=== PATIENT | female | born 1940 | race Caucasian/White ===

== ENCOUNTER → 2017-04-16 | Outpatient (CLI) | payer MEDICARE, BC ==
[~2017-04-16] MED LIST: HCTZ 25MG25 MG PO; LIPITOR 10MG10 MG PO; NORCO 325 MG-51 TAB PO; PAXIL 20MG20 MG PO; PRILOSEC 10MG10 MG PO; PRILOSEC 20MG20 MG PO; TYLENOL 8 HR PO
== END ==
LOC: MC.RAD 11:11
DX: Z12.31 Encounter for screening mammogram for malignant neoplasm of breast (principal); N63 Unspecified lump in breast

== ENCOUNTER → 2017-04-18 | Outpatient (CLI) | payer MEDICARE, BC | LOC: MC.RAD 07:27 | DX: N63 Unspecified lump in breast (principal) ==

== ENCOUNTER → 2017-04-24 | Outpatient (CLI) | payer MEDICARE, BC | LOC: MC.RAD 08:26 | DX: N63 Unspecified lump in breast (principal) ==

== ENCOUNTER 2017-05-03 08:32 | Outpatient (CLI) | payer MEDICARE, BC ==
[~2017-05-03 08:32] MED LIST changes: -NORCO 325 MG-51 TAB PO; -TYLENOL 8 HR PO
[2017-05-03 09:04] VITALS: BP 113/72; PULSE 63; TEMP 97.4
== END 2017-05-03 09:44 | disposition home or self-care (01) ==
LOC: EUO 08:32
DX: Z13.820 Encounter for screening for osteoporosis (principal); M81.0 Age-related osteoporosis without current pathological fracture; M50.30 Other cervical disc degeneration, unspecified cervical region; F32.9 Major depressive disorder, single episode, unspecified; I10 Essential (primary) hypertension; N39.3 Stress incontinence (female) (male); K21.9 Gastro-esophageal reflux disease without esophagitis; E78.00 Pure hypercholesterolemia, unspecified; N20.0 Calculus of kidney; M17.9 Osteoarthritis of knee, unspecified; M85.80 Other specified disorders of bone density and structure, unspecified site; E21.0 Primary hyperparathyroidism; E55.9 Vitamin D deficiency, unspecified; Z90.49 Acquired absence of other specified parts of digestive tract; Z78.0 Asymptomatic menopausal state; Z86.010 Personal history of colon polyps; Z80.3 Family history of malignant neoplasm of breast; Z80.8 Family history of malignant neoplasm of other organs or systems; Z98.890 Other specified postprocedural states
CPT/HCPCS: J3489

== ENCOUNTER 2017-05-15 06:55 | Day surgery (SDC) | payer MEDICARE, BC ==
[~2017-05-15] VITALS: Ht 170.2 cm; Wt 79.7 kg
[2017-05-15] VITALS (7 sets, daily range): BP systolic 124–145; BP diastolic 62–74; PULSE 61–75; TEMP 98.2
[2017-05-15] MEDS ORDERED: PAXIL 20MG20 MG PO (08:35)
[2017-05-15] MEDS ORDERED: TYLENOL 8 HR PO (08:37)
[2017-05-15] MEDS ORDERED: NORCO 325 MG-51 TAB PO (15:01)
== END 2017-05-15 16:00 | disposition home or self-care (01) ==
LOC: SDCO 06:55
DX: C50.412 Malignant neoplasm of upper-outer quadrant of left female breast (principal); E07.9 Disorder of thyroid, unspecified; K21.9 Gastro-esophageal reflux disease without esophagitis; Z80.3 Family history of malignant neoplasm of breast; Z80.49 Family history of malignant neoplasm of other genital organs; Z80.0 Family history of malignant neoplasm of digestive organs; Z87.891 Personal history of nicotine dependence
CPT/HCPCS: A9541; J0690; J1100; J2250; J2704; J2795; J3010; J7120

== ENCOUNTER → 2017-06-01 | Outpatient (CLI) | payer MEDICARE, BC ==
[~2017-06-01] MED LIST changes: +NORCO 325 MG-51 TAB PO; +TYLENOL 8 HR PO
== END ==
LOC: COL.VAS 14:01
DX: I08.1 Rheumatic disorders of both mitral and tricuspid valves (principal); Z09 Encounter for follow-up examination after completed treatment for conditions other than malignant neoplasm

== ENCOUNTER → 2017-09-11 | Outpatient (CLI) | payer MEDICARE, BC | LOC: COL.RAD 14:23 | DX: K80.20 Calculus of gallbladder without cholecystitis without obstruction (principal); K44.9 Diaphragmatic hernia without obstruction or gangrene; K57.30 Diverticulosis of large intestine without perforation or abscess without bleeding; Z85.3 Personal history of malignant neoplasm of breast | CPT/HCPCS: J7050; Q9967 ==

== ENCOUNTER 2017-09-17 10:11 | Day surgery (SDC) | payer MEDICARE, BC ==
[~2017-09-17] VITALS: Ht 170.2 cm; Wt 76.2 kg
[2017-09-17] VITALS (10 sets, daily range): BP systolic 108–149; BP diastolic 54–73; PULSE 82–105; TEMP 97.6–99.7
[2017-09-18] VITALS (9 sets, daily range): BP systolic 98–116; BP diastolic 48–55; PULSE 57–110; TEMP 98.3–101.7
== END 2017-09-18 19:40 | disposition home or self-care (01) ==
LOC: SDCO 10:11 → SURG 15:17 → SDCO 09-18 19:40
DX: K80.66 Calculus of gallbladder and bile duct with acute and chronic cholecystitis without obstruction (principal); K21.9 Gastro-esophageal reflux disease without esophagitis; F32.9 Major depressive disorder, single episode, unspecified; Z85.3 Personal history of malignant neoplasm of breast
CPT/HCPCS: OP; C1769; J0696; J1170; J2405; J2704; J3010; J7030; J7120; Q9967

== ENCOUNTER → 2018-05-17 | Outpatient (CLI) | payer MEDICARE, BC | LOC: COL.RAD 11:14 | DX: M89.8X8 Other specified disorders of bone, other site (principal); R50.9 Fever, unspecified; Z90.49 Acquired absence of other specified parts of digestive tract; Z85.3 Personal history of malignant neoplasm of breast | CPT/HCPCS: Q9967 ==

== ENCOUNTER 2018-05-21 12:55 | Outpatient (CLI) | payer MEDICARE, BC ==
[~2018-05-21] VITALS: Ht 170.2 cm; Wt 75.8 kg
[2018-05-21 13:23] VITALS: BP 113/58; PULSE 88; TEMP 97.9
== END 2018-05-21 14:09 | disposition home or self-care (01) ==
LOC: EUO 12:55
DX: M81.0 Age-related osteoporosis without current pathological fracture (principal)
CPT/HCPCS: J3489

== ENCOUNTER → 2018-06-05 | Outpatient (CLI) | payer MEDICARE, BC | LOC: MC.RAD 13:32 | DX: Z12.31 Encounter for screening mammogram for malignant neoplasm of breast (principal); Z98.890 Other specified postprocedural states; Z90.12 Acquired absence of left breast and nipple ==

== ENCOUNTER 2018-11-29 08:57 | Inpatient (IN) | payer MEDICARE, BC ==
[~2018-11-29] VITALS: Ht 170.2 cm; Wt 79.3 kg
[2018-11-29 09:32] LABS: BASO % 0.3 % (0.0-2.0); EOS # 0.1 (0.0-0.7); EOS % 0.8 % (0-4.0); GRAN # 6.8 (1.4-6.5); GRAN % 74.5 % (42.2-75.2); HEMATOCRIT 51.6 % (37.0-47.0); HEMOGLOBIN 16.8 g/dl (12.5-16.0); LYMPH # 1.5 (1.2-3.4); LYMPH % 16.1 % (20.0-51.0); MEAN CELL VOLUME 92 fl (80.0-100.0); MEAN CORPUSCULAR HEMOGLOBIN 30 pg (27.0-31.0); MEAN CORPUSCULAR HGB CONC 33 g/dl (33.0-37.0); MEAN PLATELET VOLUME 8.7 fl (7.4-10.4); MONO # 0.7 (0.1-0.6); MONO % 7.8 % (1.7-9.3); PLATELET COUNT 376 K/mm3 (130-400); RED BLOOD COUNT 5.64 M/mm3 (4.10-5.30); REDCELL DISTRIBUTION WIDTH-CV 13.9 % (11.5-14.5)
[2018-11-29 09:44] LABS: BILIRUBIN,TOTAL 1.8 mg/dL (0.0-1.0); CREATININE, serum 3.5 mg/dL (0.52-1.25); POTASSIUM 3.9 mmol/L (3.4-5.0); TOTAL PROTEIN 8.9 gm/dL (6.4-8.2)
[2018-11-29 10:47] LABS: COLLECTION METHOD CATHETER
[2018-11-29 11:03] LABS: AMORPHOUS CRYSTAL Present /uL; HYALINE CAST >12 /lpf; MUCOUS Present /lpf; PH 5 (5-8); URINE APPEARANCE Cloudy; URINE BACTERIA Rare /hpf; URINE BILIRUBIN Positive (NEGATIVE); URINE BLOOD 3+ (NEGATIVE); URINE COLOR Amber; URINE GLUCOSE Negative (NEGATIVE); URINE KETONE Negative (NEGATIVE); URINE LEUKOCYTE ESTERASE 2+ (NEGATIVE); URINE NITRATE Negative (NEGATIVE); URINE PROTEIN(semi-quant) 2+ (NEGATIVE); URINE RBC 20-50 /hpf
--- NOTE | 2018-11-29 13:00 | NUR ---
Pt arrived to floor at this time from ER via w/c with ER staff. Will orient and continue to monitor.
[2018-11-29 13:33] VITALS: BP 117/58; PULSE 16; TEMP 97.9
[2018-11-29 15:47] VITALS: BP 108/56; PULSE 100; TEMP 98.2
--- NOTE | 2018-11-29 18:21 | NUR ---
Pt has had several loose stools today, diarrhea is liquid and green. Denies nausea and vomiting. IVF to L A/C. Assisting to bathroom. Denies pain. Taking minimal PO, no appetite. English draining clear yellow urine. Will give bedside shift report to nightshift nurse who will resume care.
[2018-11-29 18:47] VITALS: BP 113/56; PULSE 113; TEMP 98.1
--- NOTE | 2018-11-29 22:36 | NUR ---
Completed assessment and medication administration for PT; PT reported continued intermittent diarrhea, although no further N/V; English inplace for accurate I&O tracking; A&Ox3, BS hyperactive with toileting assistance for safety, NS running at 125 to LAC; PT denies pain, discomfort, or further needs at time of assessment and at exit; call light placed within reach; Will continue to monitor. CDA
[2018-11-30] VITALS (7 sets, daily range): BP systolic 101–118; BP diastolic 54–63; PULSE 83–109; TEMP 97–98.7
--- NOTE | 2018-11-30 01:54 | NUR ---
PT tolerating fluids, medications, and toileting well throughout night; PT requested a midnight snack with minimal success; PT denied N/V and continues to have intermittent diarrhea; PT denies pain or discomfort at time of exit; call light placed within reach; English empied and recorded; Will continue to monitor. CDA
--- NOTE | 2018-11-30 06:57 | NUR ---
Report given to YANG Leonardo. No significant changes. CDA
[2018-11-30 07:53] LABS: BASO % 0.4 % (0.0-2.0); EOS # 0.1 (0.0-0.7); EOS % 1.5 % (0-4.0); GRAN # 3.8 (1.4-6.5); GRAN % 68.9 % (42.2-75.2); HEMATOCRIT 39.3 % (37.0-47.0); LYMPH # 0.9 (1.2-3.4); LYMPH % 16.2 % (20.0-51.0); MEAN CELL VOLUME 93 fl (80.0-100.0); MEAN CORPUSCULAR HEMOGLOBIN 30 pg (27.0-31.0); MEAN CORPUSCULAR HGB CONC 32 g/dl (33.0-37.0); MEAN PLATELET VOLUME 8.7 fl (7.4-10.4); MONO # 0.7 (0.1-0.6); MONO % 12.6 % (1.7-9.3); PLATELET COUNT 278 K/mm3 (130-400); RED BLOOD COUNT 4.23 M/mm3 (4.10-5.30)
[2018-11-30 08:03] LABS: HEMOGLOBIN 12.5 g/dl (12.5-16.0)
[2018-11-30 08:04] LABS: ALBUMIN 3.3 gm/dL (3.5-5.0); BILIRUBIN,TOTAL 0.7 mg/dL (0.0-1.0); CALCIUM 9.4 mg/dL (8.4-10.2); CREATININE, serum 1.03 mg/dL (0.52-1.25); TOTAL PROTEIN 6.2 gm/dL (6.4-8.2)
--- NOTE | 2018-11-30 08:49 | NUR ---
PATIENT ASSESSMENT COMPLETED. SHE DENIES ANY PAIN, NAUSEA, HAS HAD ONE SMALL BOUT OF DIARRHEA THIS MORNING. FEELING ALOT BETTER. DAUGHTER AT BEDSIDE
--- NOTE | 2018-11-30 10:26 | NUR ---
Plan to return home. Patient reports that she lives alone. Patient reports that her daughter will transport her home. Patient indicated that she has a walker but declines home health care. PCP is Ross Snell for RX. POA is Tatum Mendez DTR . Action: SW educated of resources, no additonal needs identified. Will continue to follow.
--- NOTE | 2018-11-30 12:02 | NUR ---
IVF INFUSING AT 100ML/HR PER DOCTOR ORDERS
--- NOTE | 2018-11-30 12:40 | NUR ---
TRINH DISCONTINUED PER DR. RICK. PATIENT IS ASSISTED TO THE RESTROOM SHE WILL PROVIDE HER OWN PERICARE PER HER REQUEST
--- NOTE | 2018-11-30 14:50 | NUR ---
PATIENT RESTING IN BED VISITING WITH FRIEND. SHE DENIES NEEDS AT THIS TIME
--- NOTE | 2018-11-30 17:05 | NUR ---
PATIENT HAS BEEN ABLE TO VOID SINCE TRINH HAS BEEN REMOVED. DENIES COMPLICATIONS.
--- NOTE | 2018-11-30 21:04 | NUR ---
PT IN BED WITH HOB FLAT, AND THAT IS THE WAY THE PT LIKES IT. PT DENIES PAIN OR DISCOMFORT. DAUGHTER WAS VISITING EARLIER BUT HAD LEFT AND NOW PT IS TRYING TO SLEEP. NO NEEDS AT THIS TIME, CALL LIGHT WITHIN REACH.
--- NOTE | 2018-12-01 02:53 | NUR ---
UNEVENTFUL NIGHT FOR PT. PT SLEEP/RESTING WITH NO S/S OF PAIN OR DISTRESS. CALL LIGHT WITHIN REACH.
[2018-12-01 04:08] VITALS: BP 103/48; PULSE 75
[2018-12-01 08:16] VITALS: BP 110/49; PULSE 67; TEMP 98.7
--- NOTE | 2018-12-01 08:43 | NUR ---
PATIENT ASSESSMENT COMPLETED. SHE STATES THAT SHE SLEPT WELL LAST NIGHT. SHE IS EATING BREAKFAST AND IT TASTES OK, NOT OVERLY HUNGRY. DENIES PAIN, VOMITING. REPORTS STOOL IS STARTING TO HAVE SOME FORM TO IT. NO OTHER NEEDS AT THIS TIME
[2018-12-01 08:47] LABS: BASO % 0.2 % (0.0-2.0); EOS # 0.3 (0.0-0.7); EOS % 5.5 % (0-4.0); GRAN # 2.7 (1.4-6.5); GRAN % 58.8 % (42.2-75.2); HEMOGLOBIN 11.2 g/dl (12.5-16.0); LYMPH % 22.6 % (20.0-51.0); MEAN CELL VOLUME 92 fl (80.0-100.0); MEAN CORPUSCULAR HEMOGLOBIN 30 pg (27.0-31.0); MEAN CORPUSCULAR HGB CONC 32 g/dl (33.0-37.0); MEAN PLATELET VOLUME 9.3 fl (7.4-10.4); MONO # 0.6 (0.1-0.6); MONO % 12.7 % (1.7-9.3); PLATELET COUNT 280 K/mm3 (130-400); REDCELL DISTRIBUTION WIDTH-CV 13.9 % (11.5-14.5)
[2018-12-01 08:56] LABS: HEMATOCRIT 34.9 % (37.0-47.0)
[2018-12-01 09:03] LABS: CALCIUM 9.2 mg/dL (8.4-10.2); CREATININE, serum 0.8 mg/dL (0.52-1.25); MAGNESIUM 1.8 mg/dL (1.6-2.3); POTASSIUM 3.8 mmol/L (3.4-5.0)
[2018-12-01 11:50] VITALS: BP 95/52; PULSE 71; TEMP 98
[2018-12-01] MEDS ORDERED: IMODIUM 2MG CAPS2 MG PO (12:16)
[2018-12-01] MEDS ORDERED: CIPRO 500MG TA500 MG PO (12:17)
[2018-12-01] MEDS ORDERED: ZOFRAN 4MG T4 MG/TAB PO (12:17)
--- NOTE | 2018-12-01 14:50 | NUR ---
DAUGHTER HERE TO ETYMOLOGY TEACHER PATIENT THEY DENY QUESTIONS
--- NOTE | 2018-12-01 15:30 | NUR ---
DISCHARGE INSTRUCTIONS REVIEWED WITH PATIENT. NEW SCRIPTS SENT WITH PATIENT.
== END 2018-12-01 14:50 | disposition home or self-care (01) | DRG 683 ==
LOC: COL.ER 08:57 → MEDICAL 10:10 → COL.ER 10:10 → MEDICAL 10:10
PROVIDERS: Emergency Medicine; Physician Assistant; ADMIT Internal Medicine
DX: N17.9 Acute kidney failure, unspecified (principal); N39.0 Urinary tract infection, site not specified; E87.2 Acidosis; Z85.3 Personal history of malignant neoplasm of breast; I10 Essential (primary) hypertension; E78.5 Hyperlipidemia, unspecified; Z87.891 Personal history of nicotine dependence; K52.9 Noninfective gastroenteritis and colitis, unspecified; B96.20 Unspecified Escherichia coli [E. coli] as the cause of diseases classified elsewhere; K21.9 Gastro-esophageal reflux disease without esophagitis; F32.9 Major depressive disorder, single episode, unspecified
CPT/HCPCS: OP; 99222-AI; 99232-AI; 99239; A4216; J0696; J1644; J2405; J7030

== ENCOUNTER → 2019-03-06 | Outpatient (CLI) | payer MEDICARE, BC ==
[~2019-03-06] MED LIST changes: +CIPRO 500MG TA500 MG PO; +IMODIUM 2MG CAPS2 MG PO; +ZOFRAN 4MG T4 MG/TAB PO
== END ==
LOC: COL.RAD 10:00
DX: E05.90 Thyrotoxicosis, unspecified without thyrotoxic crisis or storm (principal)
CPT/HCPCS: A9500

== ENCOUNTER → 2019-06-06 | Outpatient (CLI) | payer MEDICARE, BC | LOC: MC.RAD 09:15 | DX: Z12.31 Encounter for screening mammogram for malignant neoplasm of breast (principal); C50.412 Malignant neoplasm of upper-outer quadrant of left female breast; Z85.3 Personal history of malignant neoplasm of breast; Z98.890 Other specified postprocedural states; Z92.3 Personal history of irradiation ==

== ENCOUNTER 2019-06-24 08:53 | Outpatient (CLI) | payer MEDICARE, BC ==
[2019-06-24 09:14] VITALS: BP 126/67; PULSE 82; TEMP 97.8
== END 2019-06-24 10:00 | disposition home or self-care (01) ==
LOC: EUO 08:53
DX: M81.0 Age-related osteoporosis without current pathological fracture (principal)
CPT/HCPCS: J3489

== ENCOUNTER → 2020-06-07 | Outpatient (CLI) | payer MEDICARE, BC | LOC: MC.RAD 10:23 | DX: Z12.31 Encounter for screening mammogram for malignant neoplasm of breast (principal); C50.412 Malignant neoplasm of upper-outer quadrant of left female breast; Z90.12 Acquired absence of left breast and nipple ==

== ENCOUNTER 2020-09-08 14:15 | Outpatient (CLI) | payer MEDICARE, BC ==
[~2020-09-08] VITALS: Ht 170.2 cm; Wt 80.0 kg
[2020-09-08 14:30] VITALS: BP 131/85; PULSE 93; TEMP 98.1
== END 2020-09-08 16:00 | disposition home or self-care (01) ==
LOC: EUO 14:15
DX: M81.0 Age-related osteoporosis without current pathological fracture (principal)
CPT/HCPCS: J3489

== ENCOUNTER → 2021-07-14 | Outpatient (CLI) | payer MEDICARE, BC | LOC: MC.RAD 06-15 09:30 | DX: Z12.31 Encounter for screening mammogram for malignant neoplasm of breast (principal) ==

== ENCOUNTER → 2022-07-17 | Outpatient (CLI) | payer MEDICARE, BC | LOC: MC.RAD 08:55 | DX: Z12.31 Encounter for screening mammogram for malignant neoplasm of breast (principal); Z85.3 Personal history of malignant neoplasm of breast ==

== ENCOUNTER → 2024-07-18 | Outpatient (CLI) | payer MEDICARE, BC | LOC: MC.RAD 13:23 | DX: Z12.31 Encounter for screening mammogram for malignant neoplasm of breast (principal) ==

== ENCOUNTER 2024-08-18 17:09 | Inpatient (IN) | payer MEDICARE, BC ==
[~2024-08-18] VITALS: Ht 170.2 cm; Wt 77.3 kg
[2024-08-18] MEDS ORDERED: NS 1,000 ML IV ONE (17:30)
[2024-08-18] MEDS ORDERED: Ondansetron 4 MG/2 ML VIAL IV ONE (17:30)
[2024-08-18 18:09] LABS: BILIRUBIN,TOTAL 0.7 mg/dL (0.2-1.2); CREATININE, serum 0.8 mg/dL (0.57-1.11); POTASSIUM 3.8 mEq/L (3.5-4.5); TOTAL PROTEIN 6.8 g/dl (6.2-8.1)
[2024-08-18 18:16] LABS: TROPONIN-I 0.01 ng/mL (0.00-0.033)
[2024-08-18 18:21] LABS: BASO # 0.1 K/mm3 (0.0-0.2); BASO % 0.6 % (0.0-2.0); EOS # 0.3 K/mm3 (0.0-0.7); GRAN # 7.9 K/mm3 (1.4-6.5); GRAN % 74.9 % (42.2-75.2); HEMOGLOBIN 12.3 g/dl (12.5-16.0); LYMPH # 1.2 K/mm3 (1.2-3.4); LYMPH % 11.3 % (20.0-51.0); MEAN CELL VOLUME 90 fl (80.0-100.0); MEAN CORPUSCULAR HEMOGLOBIN 31 pg (27-31); MEAN CORPUSCULAR HGB CONC 34 g/dl (33.0-37.0); MEAN PLATELET VOLUME 8.3 fl (7.4-10.4); MONO % 9.8 % (1.7-9.3); PLATELET COUNT 480 K/mm3 (130-400); RED BLOOD COUNT 3.98 M/mm3 (4.10-5.30); REDCELL DISTRIBUTION WIDTH-CV 13.7 % (11.5-14.5)
[2024-08-18 18:31] LABS: HEMATOCRIT 35.8 % (37.0-47.0)
[2024-08-18 18:35] LABS: ALBUMIN 3.8 g/dL (3.4-4.8)
[2024-08-18] MEDS ORDERED: Meclizine 25 MG TAB PO ONE ×2 (19:15→20:45)
[2024-08-18 20:15] LABS: COLLECTION METHOD CATHETER
[2024-08-18 20:22] LABS: PH 6.5 (5.0-8.5); URINE APPEARANCE CLEAR (CLEAR/HAZY); URINE BLOOD NEGATIVE (NEGATIVE); URINE COLOR YELLOW (YELLOW); URINE GLUCOSE NEGATIVE (NEGATIVE); URINE KETONE TRACE (NEGATIVE); URINE NITRATE POSITIVE (NEGATIVE); URINE PROTEIN(semi-quant) NEGATIVE (NEGATIVE); URINE UROBILINOGEN 0.2 E.U/dL (0.2-1.0)
[2024-08-18] MEDS ORDERED: diphenhydrAMINE 25 MG CAP PO ONE (20:45)
[2024-08-18] MEDS ORDERED: cefTRIAXone 1 G in Water For Injection,Sterile 10 ML IV ONE (20:45)
[2024-08-18] MEDS ORDERED: Ondansetron 4 MG/2 ML VIAL IV PRN (23:15)
[2024-08-18] MEDS ORDERED: LR 1,000 ML IV SCH (23:15)
[2024-08-18] MEDS ORDERED: Scopolamine 1 MG Delivered 3-Day PATCH TD ONE (23:30)
[2024-08-18] MEDS ORDERED: Atorvastatin 10 MG TAB PO SCH (23:58)
[2024-08-19] VITALS (10 sets, daily range): BP systolic 113–174; BP diastolic 61–87; PULSE 68–90; TEMP 97.7–98.6
[2024-08-19] MEDS ORDERED: ASPIRIN 81M81 MG/TA2 PO
[2024-08-19] MEDS ORDERED: MOBIC15 MG PO
--- NOTE | 2024-08-19 00:05 | NUR ---
PATIENT ADMITTED ROOM 329. VS ARE 174/87 BP, PULSE 80, 98% O2 ON RA, HOWEVER, PER ED DESATS WHEN ASLEEP, TEMP 97.7 AND A&O X4. PATIENT ACCOMPANIED BY DAUGHTER. ORIENTED TO ROOM.
[2024-08-19] MEDS ORDERED: SYNTHROID0.075 MG/T PO (00:46)
--- NOTE | 2024-08-19 01:00 | NUR ---
PATIENT REFUSES HOSPITAL GOWN, WISHES TO STAY IN HOME CLOTHES. PATIENT WEARING SLIPPERS WITH RUBBER GRIPPER NOBES. PATIENT REFUSED LIPITOR, STATED DOCTOR DC'D D/T MUSCULAR PAIN. FALL PRECAUTIONS IN PLACE. PATIENT STATES NO NEEDS AT THIS TIME. RT SHOULDER IMMOBILIZER IN PLACE AND SCOPOLAMINE PATCH PLACED BEHIND LT EAR.
--- NOTE | 2024-08-19 01:00 | NUR ---
CALL PLACED TO HOSPITALISTLARRY. PATIENT HYPERTENSIVE 165 SYSTOLIC. TORB FOR HYDRALAZINE 10MG IV PRN Q6H FOR SYTOLIC GREATER THAN 160 GIVEN. ALSO PATIENT STATED PCP DC'D LIPITOR-TORB TO DC LIPITOR ON EMAR GIVEN.
[2024-08-19] MEDS ORDERED: hydrALAZINE 20 MG/ML 1 ML VIAL IV PRN (02:00)
--- NOTE | 2024-08-19 03:47 | NUR ---
PATIENT SLEEPING SOUNDLY. NO SIGNS OF DISTRESS.
[2024-08-19 06:47] LABS: BASO # 0.1 K/mm3 (0.0-0.2); BASO % 0.7 % (0.0-2.0); EOS # 0.4 K/mm3 (0.0-0.7); EOS % 5.1 % (0.0-4.0); GRAN % 71.8 % (42.2-75.2); LYMPH # 0.8 K/mm3 (1.2-3.4); LYMPH % 11.7 % (20.0-51.0); MEAN CELL VOLUME 92 fl (80.0-100.0); MEAN CORPUSCULAR HGB CONC 34 g/dl (33.0-37.0); MEAN PLATELET VOLUME 8.6 fl (7.4-10.4); MONO # 0.7 K/mm3 (0.1-0.6); MONO % 10.4 % (1.7-9.3); PLATELET COUNT 388 K/mm3 (130-400); RED BLOOD COUNT 3.26 M/mm3 (4.10-5.30); REDCELL DISTRIBUTION WIDTH-CV 13.6 % (11.5-14.5)
[2024-08-19 06:49] LABS: HEMOGLOBIN 10.1 g/dl (12.5-16.0); MEAN CORPUSCULAR HEMOGLOBIN 31 pg (27-31)
[2024-08-19 07:03] LABS: CREATININE, serum 0.63 mg/dL (0.57-1.11); POTASSIUM 4.1 mEq/L (3.5-4.5)
--- NOTE | 2024-08-19 08:00 | NUR ---
PATIENT IS A&O. REPORTS SOME DIZZINESS AT REST BUT SIGNIFICANTLY INCREASES WITH ACTIVITY. PATIENT USING BEDSIDE COMMODE WITH 1 ASSIST. PT/OT CONSULTED. PATIENT ALSO REPORT POOR APPETITE. DENIES N/V AT THIS TIME BUT DOESN'T WANT HER BREAKFAST. IV FLUIDS INFUSING VIA PUMP INTO RIGHT WRIST IV. PATIENT RECENTLY HAD RTS SURGERY ON 08/07/24 AND HAS AN ABDUCTOR SLING TO RUE. 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 HEAD TO TOE ASSESSMENT COMPLETE. AM MEDS GIVEN. SCD'S TO BLE CURRENTLY OFF. DAUGHTER AT BEDSIDE. NO OTHER NEEDS AT THIS TIME. CALL LIGHT IN REACH.
[2024-08-19] MEDS ORDERED: Famotidine 20 MG TAB PO SCH (09:00)
--- NOTE | 2024-08-19 09:49 | NUR ---
Shell Maker Lockstitch met with patient and her daughter, Winnie to discuss discharge planning. Patient lives alone in [place] and sees Dr. Capone for primary care. Patient gets medications from [facility] with no difficulties and does not normally use any DME. Patient is normally independent with ADLS, including driving. Patient has DPOA-HC in EMR designating her other daughter, Tatum (ph#[phone]). SW inquired about discharge planning and patient stated she is not sure as she feels so poor. Patient states she isn't sure about being hoem alone based on how she feels right now. PT/OT ordered and evals pending. Discharge Plan; TBD, pending PT/OT evals
--- NOTE | 2024-08-19 12:44 | NUR ---
D: [employer] Programmer stopped by room on rounds. A: Pt was resting and content with two daughters in the room. Pt has been a long time resident of the area. Pt asked for prayer, professor of early childhood education prayed with pt and her daughters. P: [employer] Programmer informed pt that if she needed anything from the professor of early childhood education area to let her nurse know. Ibm [employer] Programmer will follow up as needed.
--- NOTE | 2024-08-19 16:58 | NUR ---
reforestation worker attended the multidisciplinary team meeting to discuss discharge plan. Patient should be able to potentially discharge tomorrow. PT reported patient currently has outpatient services that patient would like to continue. SW explained she would discuss home health services to see if she would want those or continue with outpatient. Everyone is in agreement with patient returning home with either home health or outpatient. LESA and LESA Cui met with patient to discuss home health services. Patient stated she would like to continue her outpatient PT services for her shoulder in the next week. Patient politely declined home health at this time and stated she has family that will be staying with her after she returns home from the hospital. Discharge plan: Home with continued outpatient PT/OT
--- NOTE | 2024-08-19 18:40 | NUR ---
IV FLUIDS OUT. PATIENT SITTING UP AT BEDSIDE EATTING SUPPER TRAY. PATIENT REPORT DECREASED APPETITE BUT HAS NO C/O N/V AND IS TOLERATING AHA DIET. NOTIFIED LARRY WITH HOSPITALIST, IV TO INT PER PROVIDER.
[2024-08-19] MEDS ORDERED: PARoxetine HCL 10 MG TABLET PO SCH ×2 (21:00)
[2024-08-19] MEDS ORDERED: cefTRIAXone 1 G in Water For Injection,Sterile 10 ML IV SCH (21:00)
[2024-08-20] VITALS (13 sets, daily range): BP systolic 125–149; BP diastolic 75–79; PULSE 66–78; TEMP 92–98.5
[2024-08-20 07:04] LABS: BASO # 0.1 K/mm3 (0.0-0.2); BASO % 0.8 % (0.0-2.0); EOS # 0.4 K/mm3 (0.0-0.7); EOS % 6.5 % (0.0-4.0); GRAN # 4.2 K/mm3 (1.4-6.5); HEMATOCRIT 34.5 % (37.0-47.0); HEMOGLOBIN 11.6 g/dl (12.5-16.0); LYMPH % 14.8 % (20.0-51.0); MEAN CELL VOLUME 91 fl (80.0-100.0); MEAN CORPUSCULAR HEMOGLOBIN 31 pg (27-31); MEAN CORPUSCULAR HGB CONC 34 g/dl (33.0-37.0); MEAN PLATELET VOLUME 8.7 fl (7.4-10.4); MONO # 0.8 K/mm3 (0.1-0.6); MONO % 12.6 % (1.7-9.3); PLATELET COUNT 417 K/mm3 (130-400); REDCELL DISTRIBUTION WIDTH-CV 13.5 % (11.5-14.5)
[2024-08-20 07:22] LABS: CALCIUM 8.5 mg/dL (8.4-10.2); CREATININE, serum 0.75 mg/dL (0.57-1.11); POTASSIUM 3.9 mEq/L (3.5-4.5)
--- NOTE | 2024-08-20 08:00 | NUR ---
PATIENT SITTING UP IN BED. AAOX4. HEAD TO TOE ASSESSMENT COMPLETED. MORNING MEDS GIVEN. PT DENIES PAIN AT THIS TIME. DAUGHTER AT BEDSIDE. BED IN LOWEST POSITION, CALL LIGHT IN REACH.
[2024-08-20] MEDS ORDERED: Influenza Virus Vaccine, Hi-Dose Triv '24-25 (65 YR+) 0.5 ML SYRINGE IM SCH (09:00)
--- NOTE | 2024-08-20 11:28 | NUR ---
Initial visit; Patient and her two daughters seemed pleased to meet Assistant Associate Full Professor and spoke of having a visit from the [employer] friends and would like Assistant Associate Full Professor to offer prayer. Assistant Associate Full Professor prayed that Darling continue to heal and be blessed. She is a pleasant person and Assistant Associate Full Professor wished her well.
[2024-08-20] MEDS ORDERED: cefTRIAXone 1 G in Water For Injection,Sterile 10 ML IV SCH (15:00)
--- NOTE | 2024-08-20 16:35 | NUR ---
box worker attended multidisciplinary team meeting. When patient is medically ready for discharge, she will return home with outpatient PT. Everyone is in agreement with this plan. Discharge plan: Home with outpatient PT
--- NOTE | 2024-08-20 19:24 | NUR ---
Bedside report received from RN Amanda. Pt awake in bed with no complaints. Call light within reach.
[2024-08-21] VITALS (8 sets, daily range): BP systolic 114–129; BP diastolic 67–81; PULSE 72–82; TEMP 97.9–98.3
--- NOTE | 2024-08-21 05:48 | NUR ---
Pt slept through most of the night with no complaints. Pt ambulated to bathroom and back to bed to urinate x2 during the night with no complications. Shift assessment completed during shift. VSS. Pt has no complaints. Call light within reach.
--- NOTE | 2024-08-21 09:39 | NUR ---
PATIENT ALERT AND ORIENTED X4. PATEINT LAYING IIN BED RESTING. PATIENT ON ROOM AIR, HAD SOME GRANOLA BAR FOR BREAKFAST. PATIENT RIGHT WRIST IV WAS ACCIDENTLY REMOVED BY SHOULDER/ARM BRACE. DR. BAILEY IS AWARE. PATIENT DOES NOT HAVE ANYTHING IV DUE AT THIS TIME. PATIENT HAS A LUE RESTRICTION. CALL LIGHT WITHIN REACH. BED AT LOWEST POSITION. FAMILY AT BEDSIDE.
--- NOTE | 2024-08-21 09:40 | NUR ---
Dr. Kilpatrick was notified of patient iv accidently removed by patient right arm brace. Dr. Kilpatrick verbalized it was okay to leave patient without iv access since patient schedule medications were mainly oral and there is potential for discharge later today.
[2024-08-21] MEDS ORDERED: Scopolamine 1 MG Delivered 3-Day PATCH TD ONE (09:45)
[2024-08-21] MEDS ORDERED: TRANSDERM-0.5 MG/21 TD (12:08)
[2024-08-21] MEDS ORDERED: BACTRIM DS 8001 TAB PO (12:10)
--- NOTE | 2024-08-21 12:34 | NUR ---
riprap worker was notified during interdisciplinary clinical rounding that patient may discharge today back home with outpatient PT pending cultures. LESA met with patient and her daughter to review the important message from Medicare. Patient understood and signed. SW made copy, placed original in chart and provided copy to patient. Patient confirmed she has outpatient PT at [facility] [address] in [place] with Olaf. Discharge plan: Home with outpatient PT
--- NOTE | 2024-08-21 13:13 | NUR ---
patient discharge instructions given to patient and daughter. patient verbalized understanding. patient escorted out of unit via wheelchair, accompanied by daughter and pct.
--- NOTE | 2024-08-21 13:28 | NUR ---
acid conditioning worker faxed referral and discharge orders to [facility] [address]. Patient already has an appointment scheduled prior to hospitalization. Discharge plan: Home with outpatient PT/OT
== END 2024-08-21 13:13 | disposition home or self-care (01) | DRG 690 ==
LOC: COL.ER 17:09 → SURG 23:13
PROVIDERS: Nurse Practitioner Primary Care; Physician Assistant; ADMIT Internal Medicine
DX: N39.0 Urinary tract infection, site not specified (principal); R42 Dizziness and giddiness; Z96.611 Presence of right artificial shoulder joint; E78.5 Hyperlipidemia, unspecified; I10 Essential (primary) hypertension; F32.A Depression, unspecified; K21.9 Gastro-esophageal reflux disease without esophagitis; M85.80 Other specified disorders of bone density and structure, unspecified site; Z98.51 Tubal ligation status; Z90.89 Acquired absence of other organs; Z98.49 Cataract extraction status, unspecified eye; Z90.49 Acquired absence of other specified parts of digestive tract; Z87.891 Personal history of nicotine dependence; Z88.0 Allergy status to penicillin; Z51.11 Encounter for antineoplastic chemotherapy; Z88.3 Allergy status to other anti-infective agents; Z85.3 Personal history of malignant neoplasm of breast
CPT/HCPCS: J0696; J2405; J7030; J7120